=== PATIENT | male | born 1965 | race Caucasian/White ===

== ENCOUNTER → 2016-07-17 | Outpatient (CLI) | payer OTHER ==
--- NOTE | 2016-07-17 13:32 | CT ---
CT of the abdomen and pelvis with contrast. HISTORY: Abdominal pain TECHNIQUE: Axial CT images were obtained of the abdomen and pelvis following administration of 100 m L of Isovue-[id number] in the right antecubital fossa without complication. Coronal and sagittal reconstruc tions obtained. FINDINGS: Bases are clear, no pleural effusion. Moderate to severe fatty infiltration of the liver. Cholecystectomy clips are noted. The spleen, adr enal glands, and pancreas appear normal. The common bile duct is normal. No bulky retroperitoneal ly mphadenopathy or abdominal ascites. The kidneys enhance and function symmetrically without evidence of obstructive uropathy. The visualized large and small bowel are normal in caliber without evidence of obstruction. No focal pericolonic inflammation or stranding. Mild sigmoid diverticulosis. The appendix is normal. The uri nary bladder appears normal. No pelvic lymphadenopathy or free pelvic fluid. No suspicious osseous abnormalities identified. IMPRESSION: 1. No acute findings demonstrated within the abdomen or pelvis. 2. Moderate to severe fatty infiltration of the liver.
[2016-07-17] MEDS: Iopamidol 755 MG/ML 500 ML Multipack Bottle IVPUSH STA (13:48)
== END ==
LOC: MW.CT 12:33
PROVIDERS: ATTEND Nurse Practitioner Family
DX: R10.9 Unspecified abdominal pain (principal); K76.0 Fatty (change of) liver, not elsewhere classified
CPT/HCPCS: 74177; Q9967